=== PATIENT | male | born 2000 | race Caucasian/White ===

== ENCOUNTER 2019-08-17 20:11 | Emergency (ER) | payer MEDICAID, OTHER ==
[~2019-08-17] VITALS: Ht 165.1 cm; Wt 63.6 kg
--- NOTE | 2019-08-17 20:20 | NUR ---
PT REFUSES TO ANSWER ANY QUESTIONS INVOLVING MEDICAL HISTORY AND CARE, INCLUDING ALLERGIES TO MEDICATIONS. PT NON COMPLIANT WITH CARE. HE REMAINS IN HANDCUFFS
[2019-08-17 20:31] VITALS: BP 147/72
== END 2019-08-17 21:42 ==
LOC: ER 20:12
DX: S01.112A Laceration without foreign body of left eyelid and periocular area, initial encounter (principal); S70.02XA Contusion of left hip, initial encounter; F10.129 Alcohol abuse with intoxication, unspecified; F12.90 Cannabis use, unspecified, uncomplicated; Z88.0 Allergy status to penicillin; V98.8XXA Other specified transport accidents, initial encounter; Y93.I9 Activity, other involving external motion; Y92.488 Other paved roadways as the place of occurrence of the external cause; Y99.8 Other external cause status
CPT/HCPCS: 99283

== ENCOUNTER 2019-08-21 15:53 | Emergency (ER) | payer OTHER, MEDICAID ==
[2019-08-21 16:00] VITALS: BP 125/81
== END 2019-08-21 17:19 | disposition home or self-care (01) ==
LOC: ER 15:54
DX: S90.32XA Contusion of left foot, initial encounter (principal); F12.90 Cannabis use, unspecified, uncomplicated; Z88.0 Allergy status to penicillin; V89.2XXA Person injured in unspecified motor-vehicle accident, traffic, initial encounter; Y93.89 Activity, other specified; Y92.89 Other specified places as the place of occurrence of the external cause; Y99.8 Other external cause status
CPT/HCPCS: 73630; 99283

== ENCOUNTER 2021-06-27 08:27 | Emergency (ER) | payer MEDICAID, OTHER | END 2021-06-27 08:37 | disposition left against medical advice (07) | LOC: ER 08:28 | DX: Z53.21 Procedure and treatment not carried out due to patient leaving prior to being seen by health care provider (principal) ==

== ENCOUNTER 2021-09-09 15:39 | Emergency (ER) | payer OTHER ==
[~2021-09-09] VITALS: Ht 165.1 cm; Wt 61.4 kg
[2021-09-09 15:49] VITALS: BP 110/72
== END 2021-09-09 16:08 | disposition home or self-care (01) ==
LOC: ER 15:39
DX: S00.83XA Contusion of other part of head, initial encounter (principal); S00.31XA Abrasion of nose, initial encounter; S80.819A Abrasion, unspecified lower leg, initial encounter; F10.129 Alcohol abuse with intoxication, unspecified; F12.90 Cannabis use, unspecified, uncomplicated; Z88.0 Allergy status to penicillin; Y90.9 Presence of alcohol in blood, level not specified; X58.XXXA Exposure to other specified factors, initial encounter; Y93.89 Activity, other specified; Y92.89 Other specified places as the place of occurrence of the external cause; Y99.8 Other external cause status
CPT/HCPCS: 99282

== ENCOUNTER 2021-09-10 11:43 | Emergency (ER) | payer OTHER ==
[~2021-09-10] VITALS: Ht 165.1 cm; Wt 140.0 kg
[2021-09-10 12:11] VITALS: BP 117/61
[2021-09-10] MEDS ORDERED: TETanus/Pertussis (Acell)/Diphther VAC/PF (Tdap-Adult) 0.5ml syringe IMVAC ONE (12:20)
--- NOTE | 2021-09-10 14:11 | NUR ---
WRIST BRACE PLACED ON L WRIST WOUND TO R EAR CLEANED
== END 2021-09-10 14:11 | disposition home or self-care (01) ==
LOC: ER 11:44
DX: S63.502A Unspecified sprain of left wrist, initial encounter (principal); F12.90 Cannabis use, unspecified, uncomplicated; Z88.0 Allergy status to penicillin; V29.9XXA Motorcycle rider (driver) (passenger) injured in unspecified traffic accident, initial encounter; Y93.89 Activity, other specified; Y92.89 Other specified places as the place of occurrence of the external cause; Y99.8 Other external cause status
CPT/HCPCS: 29125; 73110; 90471; 90715; 99283